=== PATIENT | male | born 1925 | race Caucasian/White ===

== ENCOUNTER 2017-04-07 12:06 | Inpatient (IN) | payer BC, MEDICARE ==
[~2017-04-07] VITALS: Ht 165.1 cm; Wt 74.0 kg
[~2017-04-07 12:06] MED LIST: ASPI-94 PO; ATOR80TA PO; CALC500T35 PO; EMPA1TAB PO; GLIP5 PO; HYDR-3533 PO; ISOS60 PO; MAGN500T4 PO; METO50 PO; NEUR100C PO; NITR0.4S SL; OMEP20TA39 PO; REST0.05 EACH EYE; TICA90 PO; VITA400D PO
[2017-04-07] MEDS ORDERED: SODIUM CHLORIDE 0.9% FLUSH 10 ML FLUSH IVF PRN (14:30)
[2017-04-07] MEDS ORDERED: TETANUS/DIPHTHERIA TOXOID ADULT 0.5 ML VIAL IM ONE (14:30)
[2017-04-07 14:34] VITALS: BP 170/74; PULSE 61; RESP 16; TEMP 97.9; O2SAT 92
--- NOTE | 2017-04-07 14:34 | PD ---
HPI Chief Complaint: fall Time Seen by Provider: 14:15 Travel History International Travel<30 days: No Contact w/Intl Traveler<30days: No Traveled to known affect area: No History of Present Illness HPI 89-year-old male presents via EMS for evaluation after a fall. According to the patient's daughter the patient yesterday inadvertently took her normal nighttime medications. These include 2 tablets of 50 mg amitriptyline, 2 tablets Tylenol PM, 2 tablets of gabapentin 600 mg, one tablet atorvastatin 10 mg, 2 tablets Tegretol 200 mg. These were sitting on the counter. The daughter realized shortly afterwards and checked on him throughout the night, he was sleeping quite soundly. This morning when she went to check on him she noted that he had fallen and there was wounds on his face, right elbow, right knee. He is currently complaining of some pain to his right rib cage and his abdomen. He does seem confused according to his daughterhe reports that he fell 2 days ago and was seen at this hospital for evaluation of this. This is not true according to the daughter. He is on aspirin and ticagrelor according to chart review. No other complaints. PFSH Past Medical History Cancer: Yes (MELONOMA REMOVED FROM FACE 1989) Cardiac Catheterization: Yes Cardiovascular Problems: Yes Chest Pain: Yes Diabetes: Yes Diminished Hearing: Yes (A LITTLE [place] BAND) Endocrine: Yes Gastrointestinal Disorders: Yes (Acid Reflux) Genitourinary: No Hypertension: Yes Immune Disorder: No Musculoskeletal: Yes Neurologic: No Psychiatric: No Reproductive: No Respiratory: No Myocardial Infarction: Yes Past Surgical History Cardiac Surgery: Yes Coronary Stent: Yes (X3) Other Surgery: Yes (ESOPHAGUS) Social History Alcohol Use: No Tobacco Use: No Substance Use: No Allergies-Medications (Allergen,Severity, Reaction): Coded Allergies: Demerol (Verified Allergy, Severe, 02/09/16) Morphine (Unverified Allergy, Severe, Anaphylaxis, 02/09/16) Reported Meds & Prescriptions Reported Meds & Active Scripts Active Reported Calcium (Oyster Shell) Unknown Strength Tab Unknown Dose PO DAILY C 500 (Ascorbic Acid) Unknown Strength Tab Unknown Dose PO DAILY Vitamin D3 (Cholecalciferol) 10,000 Unit Cap 10,000 Units PO Q7D Garlic Oil (Garlic) 500 Mg Cap 1,000 Mg PO DAILY B Complex (B-Complex W/ Folic Acid) 1 Tab 1 Tab PO DAILY Nitroglycerin SL (Nitroglycerin) 0.4 Mg Subl 0.4 Mg SL DIRECTED PRN ONE TABLET UNDER THE TONGUE NEEDED FOR CHEST PAIN, MAY REPEAT EVERY FIVE MINUTES FOR A TOTAL OF 3 DOSES OR CALL 911 IF NO RELIEF Selenium 200 Mcg Capsule 200 Mcg PO DAILY Namenda (Memantine) 5 Mg Tab 5 Mg PO BID Restasis Opth 0.05% (Cyclosporine Opth 0.05%) 0.05% Emul 1 Drop EACH EYE DAILY Isosorbide Mononitrate ER (Isosorbide Mononitrate) 60 Mg Tab 60 Mg PO DAILY Omeprazole 40 Mg Cap 40 Mg PO DAILY Atorvastatin (Atorvastatin Calcium) 80 Mg Tab 80 Mg PO DAILY Tradjenta (Linagliptin) 5 Mg Tab 5 Mg PO DAILY Glimepiride 2 Mg Tab 2 Mg PO DAILY Aspir-81 (Aspirin) 81 Mg Tabdr 81 Mg PO DAILY Brilinta (Ticagrelor) 90 Mg Tab 90 Mg PO BID Metoprolol Tartrate 25 Mg Tab 25 Mg PO BID Gabapentin 100 Mg Cap 200 Mg PO HS Gabapentin 100 Mg Cap 200 Mg PO DAILY AT NOON PRN Review of Systems Except as stated in HPI: all other systems reviewed are Neg Physical Exam Narrative GENERAL: Well-developed well-nourished male in no acute distress. Alert and oriented to person, city but not time. SKIN: Warm and dry. Periorbital ecchymosis noted, abrasion and contusion to the bridge of the nose, abrasions noted to the right elbow and right knee. HEAD: Skin as noted above. Normocephalic. EYES: Pupils equal and round extraocular muscles are intact. No scleral icterus. No injection or drainage. ENT: No nasal bleeding or discharge. Mucous membranes pink and moist. NECK: Trachea midline. No JVD. CARDIOVASCULAR: Regular rate and rhythm. No murmur appreciated. RESPIRATORY: No accessory muscle use. Clear to auscultation. Breath sounds equal bilaterally. GASTROINTESTINAL: Abdomen soft, mild left-sided abdominal tenderness without guarding. MUSCULOSKELETAL: No obvious deformities. No tenderness to palpation along the neck or back. There is some tenderness to palpation to the right rib cage. NEUROLOGICAL: Awake and alert. No obvious cranial nerve deficits. Motor grossly within normal limits. Normal speech. Data Data Last Documented VS Vital Signs Date Time Temp Pulse Resp B/P Pulse Ox O2 Delivery O2 Flow Rate FiO2 6/20/17 19:50 70 20 176/79 99 Nasal Cannula 3 04/07/17 14:34 97.9 Orders Electrocardiogram (04/07/17 14:18) Complete Blood Count With Diff (04/07/17 14:18) Comprehensive Metabolic Panel (04/07/17 14:18) Prothrombin Time / Inr (Pt) (04/07/17 14:18) Act Partial Throm Time (Ptt) (04/07/17 14:18) Ct Brain W/O Iv Contrast(Rout) (04/07/17 14:18) Iv Access Insert/Monitor (04/07/17 14:18) Ecg Monitoring (04/07/17 14:18) Oximetry (04/07/17 14:18) Sodium Chloride 0.9% Flush (Ns Flush) (04/07/17 14:30) Salicylates (Aspirin) (04/07/17 14:18) Tylenol (Acetaminophen) (04/07/17 14:18) Ct Facial Bones W/O Iv Cont (04/07/17 ) Ribs, Uni (W/Exp Cxr-Min 3vw) (04/07/17 ) Ct Abd/Pel W Iv Contrast(Rout) (04/07/17 14:18) Tetanus/Diphtheria Tox Adult (Tetanus/Di (04/07/17 14:30) Iodixanol 320 Inj (Rad Ct) (Visipaque 32 (04/07/17 18:05) Admit Order (Ed Use Only) (04/07/17 19:49) Consult Neurology (04/07/17 ) Labs Laboratory Tests Test 04/07/17 15:30 White Blood Count 7.1 TH/MM3 Red Blood Count 3.59 MIL/MM3 Hemoglobin 11.7 GM/DL Hematocrit 35.3 % Mean Corpuscular Volume 98.4 FL Mean Corpuscular Hemoglobin 32.5 PG Mean Corpuscular Hemoglobin 33.1 % Concent Red Cell Distribution Width 13.8 % Platelet Count 106 TH/MM3 Mean Platelet Volume 11.0 FL Neutrophils (%) (Auto) 50.5 % Lymphocytes (%) (Auto) 40.2 % Monocytes (%) (Auto) 7.1 % Eosinophils (%) (Auto) 2.1 % Basophils (%) (Auto) 0.1 % Neutrophils # (Auto) 3.6 TH/MM3 Lymphocytes # (Auto) 2.8 TH/MM3 Monocytes # (Auto) 0.5 TH/MM3 Eosinophils # (Auto) 0.1 TH/MM3 Basophils # (Auto) 0.0 TH/MM3 CBC Comment DIFF FINAL Differential Comment Prothrombin Time 10.6 SEC Prothromb Time International 1.0 RATIO Ratio Activated Partial 23.4 SEC Thromboplast Time Sodium Level 146 MEQ/L Potassium Level 4.2 MEQ/L Chloride Level 110 MEQ/L Carbon Dioxide Level 28.7 MEQ/L Anion Gap 7 MEQ/L Blood Urea Nitrogen 25 MG/DL Creatinine 1.82 MG/DL Estimat Glomerular Filtration 35 ML/MIN Rate Random Glucose 127 MG/DL Calcium Level 8.3 MG/DL Total Bilirubin 0.4 MG/DL Aspartate Amino Transf 33 U/L (AST/SGOT) Alanine Aminotransferase 35 U/L (ALT/SGPT) Alkaline Phosphatase 123 U/L Total Protein 6.7 GM/DL Albumin 3.4 GM/DL Salicylates Level LESS THAN 1.7 MG/DL Acetaminophen Level LESS THAN 2.0 MCG/ML MDM Medical Decision Making Medical Screen Exam Complete: Yes Emergency Medical Condition: Yes Medical Record Reviewed: Yes Interpretation(s) EKG sinus rhythm Rib x-ray no acute abnormalities CBC hemoglobin 11.7, platelet count 106 Differential Diagnosis Intracranial hemorrhage, concussion, facial fracture, contusion, rib fracture, pneumothorax, intra-abdominal injury Narrative Course 89-year-old male presents after a fall this morning after inadvertently taking his daughters normal nighttime medications. He does seem confused compared to his baseline according to his daughter. Examination reveals facial ecchymosis and abrasion. He is having some abdominal pain and right-sided rib cage pain. Plans for basic lab work, EKG, ECG monitoring, CT brain, facial bones, abdomen and pelvis, rib x-ray. CT of the abdomen, brain, facial bones reveals no acute abnormalities. Rib x-ray reveals no acute abnormalities. Upon reexamination the patient still appears confused compared to his baseline according to the daughter. For example he asked the daughter "is the nurse fishing?" On my examination he seemed confused in regards to his current injuries. He reports that he fell 2 days ago and was seen at an outside emergency room which was not sure according to the daughter. His imaging studies revealed no acute findings and his symptoms are likely secondary to concussion. He is on aspirin as well as brilinta. I discussed with the daughter options for this patient including discharge with close follow-up versus admission for observation and she would feel more comfortable with admitting him for observation given his current symptoms. Discussed with Dr. Hancock who is agreeable with admission. He requests consultation placed specifically to neurologist Dr. Vang or someone in Dr. Vang's group. Diagnosis Primary Impression: Closed head injury Qualified Code: S09.90XA - Closed head injury, initial encounter Additional Impression: Concussion Qualified Code: S06.0X9A - Concussion, with LOC of unspecified duration, initial encounter Admitting Information Admitting Physician Requests: Observation Demond Alvarenga Apr 07, 2017 14:34
[2017-04-07 15:40] VITALS: BP 179/79; PULSE 63; RESP 16; O2SAT 92; O2SAT 93
--- NOTE | 2017-04-07 15:43 | RADRPT ---
EXAM DATE/TIME: 04/07/2017 15:05 [facility] COMPARISON: No previous studies available for comparison. INDICATIONS : Right anterior rib pain post fall. MEDICAL HISTORY : None. SURGICAL HISTORY : None. ENCOUNTER: Initial ACUITY: 1 day PAIN SCORE: 7/10 LOCATION: Right anterior ribs FINDINGS: Multiple views of the right ribs were performed. There is no evidence of displaced fracture. No claude tructive lesions or areas of periosteal thickening are seen. Expiratory view of the chest is negativ e for pneumothorax. The mediastinal structures are midline. CONCLUSION: No rib fractures. Phil Ames MD on April 07, 2017 at 15:35 Board Certified Radiologist. This report was verified electronically.
[2017-04-07 16:02] LABS: AUTOMATED NEUTROPHIL # 3.6 TH/MM3 (1.8-7.7); BASOPHIL % 0.1 % (0.0-2.0); EOSINOPHIL # 0.1 TH/MM3 (0-0.4); EOSINOPHIL % 2.1 % (0.0-4.0); HEMATOCRIT 35.3 % (39.0-51.0); HEMO FLAGS DIFF FINAL; LYMPH % 40.2 % (9.0-44.0); LYMPHOCYTE # 2.8 TH/MM3 (1.0-4.8); MEAN CELL VOLUME 98.4 FL (80.0-100.0); MEAN CORPUSCULAR HEMOGLOBIN 32.5 PG (27.0-34.0); MEAN CORPUSCULAR HGB CONC 33.1 % (32.0-36.0); MONO % 7.1 % (0.0-8.0); NEUT % 50.5 % (16.0-70.0); PLATELET COUNT 106 TH/MM3 (150-450); RED BLOOD COUNT 3.59 MIL/MM3 (4.50-5.90); RED CELL DISTRIBUTION WIDTH 13.8 % (11.6-17.2); WHITE BLOOD COUNT 7.1 TH/MM3 (4.0-11.0)
[2017-04-07 16:13] LABS: APTT (PATIENT) 23.4 SEC (24.3-30.1); PROTHROMBIN TIME - PATIENT 10.6 SEC (9.8-11.6)
[2017-04-07 16:21] LABS: ANION GAP 7 MEQ/L (5-15); AST (GOT) 33 U/L (15-37); BICARBONATE 28.7 MEQ/L (21.0-32.0); BLOOD UREA NITROGEN 25 MG/DL (7-18); CHLORIDE 110 MEQ/L (98-107); GLOMERULAR FILTRATION RATE 35 ML/MIN (>89); POTASSIUM 4.2 MEQ/L (3.5-5.1); SODIUM (NA) 146 MEQ/L (136-145)
[2017-04-07 16:25] LABS: ACETAMINOPHEN LESS THAN 2.0 MCG/ML (10.0-30.0); ALKALINE PHOSPHATASE 123 U/L (45-117); ALT (GPT) 35 U/L (12-78); TOTAL BILIRUBIN ADULT 0.4 MG/DL (0.2-1.0)
--- NOTE | 2017-04-07 16:41 | EKG ---
Date Performed: 04/07/2017 Time Performed: 15:47:25 PTAGE: 89 years EKG: Sinus rhythm NORMAL ECG PREVIOUS TRACING : 04/10/2015 15.11 No significant change from previous tracing noted. DOCTOR: Kunal Danielle Interpretating Date/Time 04/07/2017 16:40:14
--- NOTE | 2017-04-07 18:01 | RADRPT ---
EXAM DATE/TIME: 04/07/2017 17:32 [facility] COMPARISON: CT BRAIN W/O CONTRAST, September 23, 2013, 22:04. INDICATIONS : Fell yesterday hit head. RADIATION DOSE: 45.52 CTDIvol (mGy) MEDICAL HISTORY : Cardiovascular disease. Hypertension. Diabetes,melanoma SURGICAL HISTORY : None. ENCOUNTER: Initial ACUITY: 1 day PAIN SCALE: 0/10 LOCATION: cranial TECHNIQUE: Multiple contiguous axial images were obtained of the head. Using automated exposure control and adj ustment of the mA and/or kV according to patient size, radiation dose was kept as low as reasonably a chievable to obtain optimal diagnostic quality images. FINDINGS: CEREBRUM: The ventricles are normal for age. No evidence of midline shift, mass lesion, hemorrhage or acute in farction. No extra-axial fluid collections are seen. POSTERIOR FOSSA: The cerebellum and brainstem are intact. The 4th ventricle is midline. The cerebellopontine angle i s unremarkable. EXTRACRANIAL: The visualized portion of the orbits is intact. SKULL: The calvaria is intact. No evidence of skull fracture. CONCLUSION: 1. No acute findings. Cortical volume loss. Isac Putnam MD on April 07, 2017 at 17:56 Board Certified Radiologist. This report was verified electronically.
[2017-04-07] MEDS ORDERED: IODIXANOL 320 MG/ML 10 ML VIAL (for Rad CT) IV ONE (18:05)
--- NOTE | 2017-04-07 18:15 | RADRPT ---
EXAM DATE/TIME: 04/07/2017 17:32 [facility] COMPARISON: No previous studies available for comparison. INDICATIONS : Fell yesterday hit head. RADIATION DOSE: 52.78 CTDIvol (mGy) MEDICAL HISTORY : Cardiovascular disease. Hypertension. Diabetes,melanoma SURGICAL HISTORY : None. ENCOUNTER: Initial ACUITY: 1 day PAIN SCORE: 0/10 LOCATION: facial TECHNIQUE: Volumetric scanning of the facial bones was performed. Using automated exposure control and adjustme nt of the mA and/or kV according to patient size, radiation dose was kept as low as reasonably achiev able to obtain optimal diagnostic quality images. FINDINGS: ORBITS: The orbital and infraorbital osseous structures are intact. The retroconal structures have a normal configuration. No radiopaque foreign bodies are seen. NASAL BONE: The nasal bone and maxillary spine are intact ZYGOMATIC ARCHES: Symmetric without evidence of fracture. SINUSES: The maxillary, ethmoid and frontal sinuses are intact. No air-fluid levels seen. NASAL CAVITY: The nasal septum is intact and midline. The lacrimal ducts are intact. SOFT TISSUES: No radiopaque foreign bodies seen. No soft-tissue swelling is seen. INTRACRANIAL: No intracranial air seen. CRIBIFORM PLATE: Grossly intact. CONCLUSION: 1. No acute findings. Isac Putnam MD on April 07, 2017 at 18:08 Board Certified Radiologist. This report was verified electronically.
--- NOTE | 2017-04-07 18:22 | RADRPT ---
EXAM DATE/TIME: 04/07/2017 17:41 [facility] COMPARISON: No previous studies available for comparison. INDICATIONS : Fall yesterday. IV CONTRAST: 50 cc Visipaque (iodixanol) IV ORAL CONTRAST: No oral contrast ingested. RADIATION DOSE: 10.11 CTDIvol (mGy) MEDICAL HISTORY : Cardiovascular disease. Hypertension. Diabetes,melanoma SURGICAL HISTORY : None. ENCOUNTER: Initial ACUITY: 1 day PAIN SCALE: 0/10 LOCATION: Abdomen TECHNIQUE: Volumetric scanning of the abdomen and pelvis was performed. Using automated exposure control and ad justment of the mA and/or kV according to patient size, radiation dose was kept as low as reasonably achievable to obtain optimal diagnostic quality images. FINDINGS: They are basilar fibrotic changes and chronic airspace disease similar to March 2015 examination. Heart is enlarged. No acute findings in the liver, spleen, adrenals, kidneys or pancreas. The kidneys are atrophic. No calcified gallstones or biliary ductal dilatation. No free fluid. No bowel obstruction. No adenopathy. There is previous screw fixation right femur. Calcified mesenteric lymph node noted in right lower qu adrant. CONCLUSION: 1. Negative for acute traumatic injury within the abdomen and pelvis. No acute bony abnormality. 2. Chronic fibrotic changes at the lung bases similar to 2015. 3. Previous screw fixation proximal right femur. Isac Putnam MD on April 07, 2017 at 18:13 Board Certified Radiologist. This report was verified electronically.
[2017-04-07] MEDS ORDERED: BRIL90TA PO (19:30)
[2017-04-07] MEDS ORDERED: ASPI81TA81 PO (19:30)
[2017-04-07] MEDS ORDERED: ATOR40TA16 PO (19:30)
[2017-04-07] MEDS ORDERED: TRAD5TAB PO (19:30)
[2017-04-07] MEDS ORDERED: GABA100C4 PO ×2 (19:30)
[2017-04-07] MEDS ORDERED: METO25TA3 PO (19:30)
[2017-04-07] MEDS ORDERED: GLIM2TAB PO (19:30)
[2017-04-07 19:50] VITALS: BP 176/79; PULSE 70; RESP 20; O2SAT 99
[2017-04-07] MEDS ORDERED: CHOL1CAP24 PO (19:55)
[2017-04-07] MEDS ORDERED: OMEP40CA2 PO (19:55)
[2017-04-07] MEDS ORDERED: REST0.05 EACH EYE (19:55)
[2017-04-07] MEDS ORDERED: ATOR1TAB18 PO (19:55)
[2017-04-07] MEDS ORDERED: CALC500T35 PO (19:55)
[2017-04-07] MEDS ORDERED: ISOS60TA PO (19:55)
[2017-04-07] MEDS ORDERED: NITR1SUB3 SL (19:55)
[2017-04-07] MEDS ORDERED: GARL500C PO (19:55)
[2017-04-07] MEDS ORDERED: NAME5TAB2 PO (19:55)
[2017-04-07] MEDS ORDERED: C 50TAB PO (19:55)
[2017-04-07] MEDS ORDERED: SELE200C3 PO (19:55)
[2017-04-07] MEDS ORDERED: B COTAB3 PO (19:55)
[2017-04-07 20:37] VITALS: BP 149/67; PULSE 66; RESP 20; O2SAT 98
[2017-04-07] MEDS ORDERED: SENNOSIDES 8.6 MG TAB PO PRN (20:45)
[2017-04-07] MEDS ORDERED: ACETAMINOPHEN 325 MG TAB PO PRN (20:45)
[2017-04-07] MEDS ORDERED: BISACODYL 10 MG SUPP RECTAL PRN (20:45)
[2017-04-07] MEDS ORDERED: MAGNESIUM HYDROXIDE SUSP 30 ML CUP PO PRN (20:45)
[2017-04-07] MEDS ORDERED: SODIUM CHLORIDE 0.9% FLUSH 10 ML FLUSH IV FLUSH PRN (20:45)
[2017-04-07] MEDS ORDERED: NALOXONE HCL 0.4 MG/ML AMP IV PRN (20:45)
[2017-04-07] MEDS ORDERED: LACTULOSE SYRUP 20 GM/30 ML CUP PO PRN (20:45)
[2017-04-07] MEDS: SODIUM CHLORIDE 0.9% FLUSH 10 ML FLUSH IV FLUSH SCH (21:00)
[2017-04-07] MEDS: GABAPENTIN 100 MG CAP PO SCH (21:00)
[2017-04-07] MEDS: DOCUSATE SODIUM 50 MG/SENNA 8.6 MG TAB PO SCH (21:00)
[2017-04-07] MEDS: MEMANTINE HCL 5 MG TAB PO SCH (21:00)
[2017-04-07] MEDS: TICAGRELOR 90 MG TAB PO SCH (21:00)
[2017-04-07] MEDS: METOPROLOL TARTRATE 25 MG TAB PO SCH (21:00)
[2017-04-07] MEDS ORDERED: CHOLECALCIFEROL (VIT D3) 5000 UNIT CAP PO SCH (22:00)
[2017-04-07 22:25] VITALS: BP 178/81; PULSE 60; RESP 18; TEMP 98; O2SAT 99
[2017-04-08] VITALS (20 sets, daily range): BP systolic 141–172; BP diastolic 71–81; PULSE 56–82; RESP 16–18; TEMP 97.9–98.7; O2SAT 93–95
[2017-04-08 05:37] LABS: AUTOMATED NEUTROPHIL # 3.5 TH/MM3 (1.8-7.7); BASOPHIL % 0.2 % (0.0-2.0); EOSINOPHIL # 0.2 TH/MM3 (0-0.4); EOSINOPHIL % 2.8 % (0.0-4.0); HEMATOCRIT 34.8 % (39.0-51.0); HEMO FLAGS DIFF FINAL; LYMPH % 41.8 % (9.0-44.0); LYMPHOCYTE # 3.1 TH/MM3 (1.0-4.8); MEAN CELL VOLUME 97.5 FL (80.0-100.0); MEAN CORPUSCULAR HEMOGLOBIN 33.1 PG (27.0-34.0); NEUT % 47.2 % (16.0-70.0); PLATELET COUNT 106 TH/MM3 (150-450); RED BLOOD COUNT 3.57 MIL/MM3 (4.50-5.90); RED CELL DISTRIBUTION WIDTH 14.2 % (11.6-17.2); WHITE BLOOD COUNT 7.5 TH/MM3 (4.0-11.0)
[2017-04-08 05:51] LABS: ANION GAP 7 MEQ/L (5-15); AST (GOT) 31 U/L (15-37); BICARBONATE 29.7 MEQ/L (21.0-32.0); BLOOD UREA NITROGEN 21 MG/DL (7-18); CHLORIDE 108 MEQ/L (98-107); GLOMERULAR FILTRATION RATE 37 ML/MIN (>89); POTASSIUM 3.7 MEQ/L (3.5-5.1); SODIUM (NA) 145 MEQ/L (136-145)
[2017-04-08 05:54] LABS: ALKALINE PHOSPHATASE 123 U/L (45-117); ALT (GPT) 30 U/L (12-78); TOTAL BILIRUBIN ADULT 0.5 MG/DL (0.2-1.0)
[2017-04-08] MEDS: ISOSORBIDE MONONITRATE 60 MG TAB PO SCH (06:23)
--- NOTE | 2017-04-08 08:20 | HHI.HP ---
History of Present Illness Service Family medicine Primary Care Physician Hosea Hancock, DO Admission Diagnosis closed head injury, concussion Diagnoses: History of Present Illness Patient is a 89-year-old male who presented to ED for evaluation after a fall. According to records the patient's daughter reported that he inadvertently took her normal nighttime medications. These include 2 tablets of 50 mg amitriptyline, 2 tablets Tylenol PM, 2 tablets of gabapentin 600 mg, one tablet atorvastatin 10 mg, 2 tablets Tegretol 200 mg. These were sitting on the counter. The daughter realized shortly afterwards and checked on him throughout the night, he was sleeping quite soundly. When she went to check on him she noted that he had fallen and there was wounds on his face, right elbow, right knee. He is not able to give details of event he is alert to self, DARBY well, and cooperative. Head CT, abdomen/pelvis CT, maxillofacial CT and rib Xray with no acute findings. Neurology is consulted for evaluation. Patient has a past medical history of diabetes, GERD, HTN, and CAD with stent placement Review of Systems Constitutional: DENIES: Fatigue, Weight loss, Chills, Dizziness Respiratory: DENIES: Cough, Wheezing, Sputum production, Shortness of breath Cardiovascular: DENIES: Chest pain, Palpitations Gastrointestinal: DENIES: Abdominal pain, Constipation, Diarrhea Hematologic/lymphatic: COMPLAINS OF: Bruising Neurologic: DENIES: Headache, Seizures Psychiatric: COMPLAINS OF: Confusion, DENIES: Anxiety Past Family Social History Allergies: Coded Allergies: Demerol (Verified Allergy, Severe, 02/09/16) Morphine (Unverified Allergy, Severe, Anaphylaxis, 02/09/16) Past Medical History HTN CAD with stent placement GERD Diabetes [place] Past Surgical History Cardiac stent placement Active Ordered Medications Current Medications Medications (Trade) Dose Ordered Sig/Leonardo Route Start Time Stop Time Status Last Admin (NS Flush) 2 ml UNSCH PRN IVF 04/07/17 14:30 (Ecotrin Ec) 81 mg DAILY PO 04/08/17 09:00 (Lipitor) 80 mg DAILY PO 04/08/17 09:00 (Vitamin D3) 10,000 units Q7D PO 04/07/17 22:00 (Neurontin) 200 mg HS PO 04/07/17 21:00 04/07/17 21:00 (Amaryl) 2 mg DAILYAC PO 04/08/17 08:00 (Imdur) 60 mg DAILY@07 PO 04/08/17 07:00 04/08/17 06:23 (Namenda) 5 mg BID PO 04/07/17 21:00 04/07/17 21:00 (Lopressor) 25 mg BID PO 04/07/17 21:00 04/07/17 21:00 (Brilinta) 90 mg BID PO 04/07/17 21:00 (Nephrocaps) 1 cap DAILY PO 04/08/17 09:00 Patient Own Medication 1 ea DAILY EACH EYE 04/08/17 09:00 Future Hold Patient Own Medication 5 ea DAILY PO 04/08/17 09:00 Future Hold (Protonix) 40 mg DAILY PO 04/08/17 09:00 (NS Flush) 2 ml UNSCH PRN IV FLUSH 04/07/17 20:45 (NS Flush) 2 ml BID IV FLUSH 04/07/17 21:00 04/07/17 21:00 (Tylenol) 650 mg Q4H PRN PO 04/07/17 20:45 (Narcan Inj) 0.4 mg UNSCH PRN IV 04/07/17 20:45 (Emelia-Colace) 1 tab BID PO 04/07/17 21:00 (Milk Of Magnesia Liq) 30 ml Q12H PRN PO 04/07/17 20:45 (Senokot) 17.2 mg Q12H PRN PO 04/07/17 20:45 (Dulcolax Supp) 10 mg DAILY PRN RECTAL 04/07/17 20:45 (Lactulose Liq) 30 ml DAILY PRN PO 04/07/17 20:45 Family History Unable to obtain. Social History Denies smoking and ETOH use Lives with family Retired railroad switchman Physical Exam Vital Signs Vital Signs Date Time Temp Pulse Resp B/P Pulse Ox O2 Delivery O2 Flow Rate FiO2 04/08/17 06:00 62 04/08/17 05:00 59 04/08/17 04:00 61 04/08/17 04:00 98.0 60 18 151/79 93 04/08/17 03:00 59 04/08/17 02:00 62 04/08/17 01:00 59 04/08/17 00:00 59 04/08/17 00:00 97.9 58 18 172/81 95 04/07/17 22:25 98.0 60 18 178/81 99 04/07/17 20:37 66 20 149/67 98 Nasal Cannula 3 04/07/17 19:50 70 20 176/79 99 Nasal Cannula 3 04/07/17 15:40 63 16 179/79 93 Room Air 04/07/17 15:40 92 Room Air 04/07/17 14:34 97.9 61 16 170/74 92 Physical Exam GENERAL: Well-developed well-nourished male in no acute distress. Alert and oriented to person, city but not time. SKIN: Warm and dry. Periorbital ecchymosis noted, abrasion and contusion to the bridge of the nose, abrasions noted to the right elbow and right knee. HEAD: Skin as noted above. Normocephalic. EYES: Pupils equal and round extraocular muscles are intact. No scleral icterus. No injection or drainage. ENT: No nasal bleeding or discharge. Mucous membranes pink and moist. NECK: Trachea midline. No JVD. CARDIOVASCULAR: Regular rate and rhythm. No murmur appreciated. RESPIRATORY: No accessory muscle use. Clear to auscultation. Breath sounds equal bilaterally. GASTROINTESTINAL: Abdomen soft, mild left-sided abdominal tenderness without guarding. MUSCULOSKELETAL: No obvious deformities. No tenderness to palpation along the neck or back. There is some tenderness to palpation to the right rib cage. NEUROLOGICAL: Awake and alert. No obvious cranial nerve deficits. Motor grossly within normal limits. Normal speech. Laboratory Laboratory Tests Test 04/07/17 04/08/17 15:30 05:21 White Blood Count 7.1 7.5 Red Blood Count 3.59 3.57 Hemoglobin 11.7 11.8 Hematocrit 35.3 34.8 Mean Corpuscular Volume 98.4 97.5 Mean Corpuscular Hemoglobin 32.5 33.1 Mean Corpuscular Hemoglobin 33.1 34.0 Concent Red Cell Distribution Width 13.8 14.2 Platelet Count 106 106 Mean Platelet Volume 11.0 10.8 Neutrophils (%) (Auto) 50.5 47.2 Lymphocytes (%) (Auto) 40.2 41.8 Monocytes (%) (Auto) 7.1 8.0 Eosinophils (%) (Auto) 2.1 2.8 Basophils (%) (Auto) 0.1 0.2 Neutrophils # (Auto) 3.6 3.5 Lymphocytes # (Auto) 2.8 3.1 Monocytes # (Auto) 0.5 0.6 Eosinophils # (Auto) 0.1 0.2 Basophils # (Auto) 0.0 0.0 CBC Comment DIFF FINAL DIFF FINAL Differential Comment Prothrombin Time 10.6 Prothromb Time International 1.0 Ratio Activated Partial 23.4 Thromboplast Time Sodium Level 146 145 Potassium Level 4.2 3.7 Chloride Level 110 108 Carbon Dioxide Level 28.7 29.7 Anion Gap 7 7 Blood Urea Nitrogen 25 21 Creatinine 1.82 1.75 Estimat Glomerular Filtration 35 37 Rate Random Glucose 127 134 Calcium Level 8.3 8.7 Total Bilirubin 0.4 0.5 Aspartate Amino Transf 33 31 (AST/SGOT) Alanine Aminotransferase 35 30 (ALT/SGPT) Alkaline Phosphatase 123 123 Total Protein 6.7 6.4 Albumin 3.4 3.1 Salicylates Level LESS THAN 1.7 Acetaminophen Level LESS THAN 2.0 Result Diagram: 04/08/17 0521 04/08/17 0521 Imaging Last [address] 04/07/17 1418 Signed Impressions: Service Date/Time: Friday, April 07, 2017 17:32 - CONCLUSION: 1. No acute findings. Cortical volume loss. Isac Putnam MD Abdomen/Pelvis CT 04/07/17 1418 Signed Impressions: Service Date/Time: Friday, April 07, 2017 17:41 - CONCLUSION: 1. Negative for acute traumatic injury within the abdomen and pelvis. No acute bony abnormality. 2. Chronic fibrotic changes at the lung bases similar to 2015. 3. Previous screw fixation proximal right femur. Isac Putnam MD Ribs X-Ray 04/07/17 0000 Signed Impressions: Service Date/Time: Friday, April 07, 2017 15:05 - CONCLUSION: No rib fractures. Phil Ames MD Maxillofacial CT 04/07/17 0000 Signed Impressions: Service Date/Time: Friday, April 07, 2017 17:32 - CONCLUSION: 1. No acute findings. Isac Putnam MD Assessment and Plan Problem List: (1) Concussion Status: Acute Plan: Patient S/P fall. Head CT with no acute findings. Neurology consulted. PT and OT ordered (2) DM (diabetes mellitus screen) Status: Acute Plan: BS AC and HS. Continue Amaryl will monitor (3) CAD (coronary artery disease) Status: Acute Plan: Continue Brilinta. Denies and chest discomfort (4) HBP (high blood pressure) Status: Acute Plan: Continue current regimen will monitor closely (5) Hyperlipidemia Status: Acute Plan: Continue statin. (6) GERD (gastroesophageal reflux disease) Status: Acute Plan: On PPI asymptomatic (7) Chronic renal disease Status: Acute Plan: CKD stage 3. Stable with creat 1.75 and BUN of 21. Recheck in AM Assessment and Plan Assessment and plan discussed with Dr. Hancock Discussed Condition With Nursing Discharge Planning To be assessed Physician Attestation I and the ADMINISTRATIVE SERVICES MANAGER have both examined this patient and reviewed this note and I agree with these findings and plan of care. Hosea Hancock DO Problem Qualifiers (1) Concussion: Qualified Code: S06.0X9A - Concussion, with LOC of unspecified duration, initial encounter Miya Buitrago Apr 08, 2017 08:20
[2017-04-08] MEDS: SODIUM CHLOR 0.9% 1000 ML INJ 1,000 ML IV SCH ×2 (08:21→21:41)
[2017-04-08] MEDS: ASPIRIN EC 81 MG TABEC PO SCH (08:41)
[2017-04-08] MEDS: GLIMEPIRIDE 2 MG TAB PO SCH (08:42)
[2017-04-08] MEDS: TICAGRELOR 90 MG TAB PO SCH ×2 (08:42→21:00)
[2017-04-08] MEDS: MEMANTINE HCL 5 MG TAB PO SCH ×2 (08:42→22:08)
[2017-04-08] MEDS: ATORVASTATIN 80 MG TAB PO SCH (08:42)
[2017-04-08] MEDS: PANTOPRAZOLE SOD 40 MG DELAYED RELEASE TAB PO SCH (08:42)
[2017-04-08] MEDS: METOPROLOL TARTRATE 25 MG TAB PO SCH ×2 (08:42→22:08)
[2017-04-08] MEDS: DOCUSATE SODIUM 50 MG/SENNA 8.6 MG TAB PO SCH ×2 (08:42→22:08)
[2017-04-08] MEDS: SODIUM CHLORIDE 0.9% FLUSH 10 ML FLUSH IV FLUSH SCH ×2 (08:43→22:09)
--- NOTE | 2017-04-08 08:54 | MB ---
cc: BEN DELA CRUZ M.D. DATE OF CONSULTATION 04/08/2017 REASON FOR CONSULTATION The patient is an 89-year-old right-handed man who appears to have some dementia, non-insulin dependent diabetes. He tells me he had an MA sometime ago with a stent. He tells me he may have passed out in the past, but he does not remember the specifics of it. Some minor skin cancers. He has had several falls recently and had taken his nighttime medicines during the day and subsequently was found to have abrasions on his face and brought into the hospital. He may have been to an ER recently after a fall, although not here in this hospital. Nevertheless, he had taken two Tylenol PM, 100 mg of Elavil, two pills of Gabapentin, atorvastatin and two pills of Tegretol. He was sleeping well and these medications evidently were the patient's daughter medicines and not his own. In the morning, she went in to check him, he had fallen, had wounds on his face, had pain in his right rib cage and he seemed confused and he had also fallen two days prior. ALLERGIES DEMEROL AND MORPHINE MED8S He is on: 1. Calcium 2. Vitamin D 3. Namenda 5 b.i.d. 4. Restasis drops 5. Isosorbide 6. Omeprazole 7. Atorvastatin 8. Tradjenta 9. Glyburide 10. 81 of aspirin 11. Brilinta 12. Metoprolol 13. Gabapentin 100 in the morning, 200 at noon, 200 at night. REVIEW OF SYSTEMS He denies any hypertension, hypercholesterolemia, A. Fib, Coumadin, renal, hepatic or pulmonary disease, thyroid disease lupus, ulcer, seizures, or stroke. SOCIAL HISTORY Not a smoker or a drinker, lives with his he tells me. FAMILY HISTORY Negative for cancer, seizure or stroke. PHYSICAL EXAM VITAL SIGNS: Afebrile, 151/79, 60. EKG showed sinus rhythm. NECK: There were no carotid bruits. HEART: Regular rhythm. I did not detect a murmur. He does have abrasions about his nose and raccoon eyes bilaterally. NEUROLOGIC: Pupils are equal, visual calderón are full. Extraocular intact without nystagmus. He denies any dizziness at this time. He tells me he is lightheaded on standing. Face is symmetrical normal station. Tongue was midline. There is no drift. He had normal strength in the upper and lower extremities bilaterally. DTRs are absent throughout. Toes are downgoing bilaterally. Pinprick was intact in all four extremities and face. He is not ataxic on [id number]. Speech is fluent. He is not aphasic, however, he is a little hypophonic. He does not know the year. He says he lives in [place]. He is not sure what state he is in. He says [place] was a state. Obviously had some dementia. Gait is actually fairly steady with minimal assist. LABORATORY DATA CBC was essentially normal. Basic metabolic profile creatinine 1.75 otherwise essentially normal. LFTs normal. Albumin 3.1. Coags normal. UA negative. CT scan of the brain was read as normal. CT of the abdomen and pelvis essentially unremarkable. Maxillofacial CT, no fracture. Rib x-ray. No rib fracture. Review of his CT scan of the brain films shows some diffuse atrophy, some central and cortical atrophy, no major hydrocephalus. IMPRESSION It appears he has some underlying dementia, probably some Alzheimer's dementia. He has had some recent falls. We will check a standing blood pressure, have PT ambulate him. We will check an MRI of the brain to make sure he has not had a recent stroke, although I did not see one obviously on his exam here. Of course, his daughter will have to make sure he takes his own medications at home. Might consider adding on some Aricept in the future. Overall, I thought he looked fairly well neurologically. We will check an EEG on him also and a carotid ultrasound. He might be able to be discharged fairly quickly if his workup is negative and if he is steady on his feet and cleared by PT. We will also check some additional dementia labs. MD MARTIN Curiel/FERN /8:22 AM /8:33 AM
[2017-04-08] MEDS ORDERED: SELENIUM 200 MCG PO SCH (09:00)
[2017-04-08] MEDS ORDERED: [UNRECOGNIZED DRUG - OTHER] PO SCH (09:00)
[2017-04-08] MEDS: VITAMIN B CMPLX/VITC/FOLIC AC CAP PO SCH (09:00)
[2017-04-08] MEDS ORDERED: CYCLOSPORINE OPTH 0.05% EACH EYE SCH (09:00)
[2017-04-08] MEDS ORDERED: [UNRECOGNIZED DRUG - OTHER] EACH EYE SCH (09:00)
[2017-04-08] MEDS ORDERED: GARLIC 1000 MG PO SCH (09:00)
[2017-04-08] MEDS ORDERED: LINAGLIPTIN 5 MG PO SCH (09:00)
--- NOTE | 2017-04-08 13:18 | RADRPT ---
EXAM DATE/TIME: 04/08/2017 11:48 [facility] COMPARISON: No previous studies available for comparison. INDICATIONS : Head injury. Concussion. MEDICAL HISTORY : Hypertension. Myocardial infarction. Acid reflux. Diabetes. Endocrine disorder. SURGICAL HISTORY : Cardiac catheterization. Coronary stent. Right hip rocio placement. Esophageal surgery. ENCOUNTER: Initial ACUITY: 1 day PAIN SCORE: 1/10 LOCATION: Bilateral neck. PEAK SYSTOLIC VELOCITIES (cm/sec): ICA/CCA RATIO: Right: 1.3 Left: 1.2 ICA: Right: 72.1 Left: 77.6 CCA: Right: 54.5 Left: 64.2 ECA: Right: 75.4 Left: 93.5 VERTEBRAL: Right: 43.3 antegrade Left: 51.8 antegrade Elevated flow velocities and ICA/CCA ratios have been found to correlate with increased degrees of vessel stenosis, calculated as percentage of diameter relative to a normal segment of distal ICA/CCA FINDINGS: RIGHT CAROTID: There is no evidence for a hemodynamically significant carotid stenosis. Minimal int imal hyperplasia is present with scattered calcific plaque. LEFT CAROTID: There is no evidence for a hemodynamically significant carotid stenosis. Minimal inti mal hyperplasia is present with scattered calcific plaque. VERTEBRAL ARTERIES: Flow is antegrade in both vertebral arteries. MISCELLANEOUS: There are no ancillary masses or adenopathy. CONCLUSION: Negative examination for a hemodynamically significant carotid stenosis. Andrzej Desai MD FACR Andrzej Desai MD FACR on April 08, 2017 at 13:15 Board Certified Radiologist. This report was verified electronically.
[2017-04-08 14:21] LABS: FREE T4 1.05 NG/DL (0.76-1.46); TOTAL PROTEIN SPE 6.5 GM/DL (6.0-7.6)
[2017-04-08] MEDS: GABAPENTIN 100 MG CAP PO SCH (22:08)
--- NOTE | 2017-04-08 23:00 | MG ---
cc: YOSSI DURON MD Lab No: [id number] Date: 04/08/17 Age: 89 Sex: M Race: DATE OF 1925 HISTORY An 89-year-old with history of confusion. 4-7 Hz posterior rhythm, 10-40 microvolts. Further slowing ___ movements suggestive of drowsy state. Mild vertex waves suggestive of stage I sleep. No significant driving, photic stimulation. Single lead EKG showing sinus rhythm with premature contractions. INTERPRETATION Normal sleep EEG. Clinical correlation. Yossi Duron MD MG/EO /10:27 PM /11:00 PM
[2017-04-09] VITALS (10 sets, daily range): BP systolic 92–170; BP diastolic 51–81; PULSE 56–70; RESP 18–20; TEMP 98.3–99.4; O2SAT 91–94
[2017-04-09] MEDS: ISOSORBIDE MONONITRATE 60 MG TAB PO SCH (06:21)
[2017-04-09 06:25] LABS: HEMATOCRIT 33.2 % (39.0-51.0); MEAN CELL VOLUME 98.5 FL (80.0-100.0); MEAN CORPUSCULAR HEMOGLOBIN 32.7 PG (27.0-34.0); MEAN CORPUSCULAR HGB CONC 33.2 % (32.0-36.0); PLATELET COUNT 97 TH/MM3 (150-450); RED BLOOD COUNT 3.37 MIL/MM3 (4.50-5.90); RED CELL DISTRIBUTION WIDTH 14.1 % (11.6-17.2)
[2017-04-09 06:33] LABS: REVIEW FLAG FINAL
[2017-04-09 06:46] LABS: BICARBONATE 25.4 MEQ/L (21.0-32.0); POTASSIUM 3.5 MEQ/L (3.5-5.1)
--- NOTE | 2017-04-09 07:45 | HHI.PR ---
Objective Vital Signs Date Time Temp Pulse Resp B/P Pulse Ox O2 Delivery O2 Flow Rate FiO2 04/09/17 04:00 61 04/09/17 04:00 98.3 62 18 170/81 94 04/09/17 00:00 61 04/09/17 00:00 99.4 66 18 152/74 93 04/08/17 20:00 98.7 65 16 141/71 93 04/08/17 20:00 60 04/08/17 17:00 56 04/08/17 16:00 56 04/08/17 15:00 74 04/08/17 14:00 60 04/08/17 13:00 66 04/08/17 12:00 62 04/08/17 11:00 66 04/08/17 10:00 82 04/08/17 09:00 70 04/08/17 08:45 98.2 63 18 149/78 93 04/08/17 08:00 60 I/O 04/08/17 04/08/17 04/08/17 04/09/17 04/09/17 04/09/17 07:00 15:00 23:00 07:00 15:00 23:00 Intake Total 240 ml 800 ml 721 ml Output Total 500 ml 200 ml Balance -260 ml 800 ml 521 ml Intake Oral 240 ml 600 ml 240 ml IV Total 200 ml 481 ml Output Urine Total 500 ml 200 ml # Voids 4 1 # Bowel Movements 1 1 0 Result Diagram: 04/09/17 0609 04/09/17 0609 Objective Remarks awake alert confused Assessment and Plan Assessment and Plan imp mri pend standing bp pend labs and eeg ok so far us neg ambulate with PT if mri neg and stand bp ok he could dc and fu with me o/p or with his o/p neurologist if he has one ad Steven Mendieta MD Apr 09, 2017 07:44
--- NOTE | 2017-04-09 08:02 | HHI.PR ---
Subjective Remarks Patient seen at bedside sitter present. Alert and cooperative. Oriented to self and place. Denies any SOB. Reports some discomfort from fall in rib region. Objective Vital Signs Date Time Temp Pulse Resp B/P Pulse Ox O2 Delivery O2 Flow Rate FiO2 04/09/17 04:00 61 04/09/17 04:00 98.3 62 18 170/81 94 04/09/17 00:00 61 04/09/17 00:00 99.4 66 18 152/74 93 04/08/17 20:00 98.7 65 16 141/71 93 04/08/17 20:00 60 04/08/17 17:00 56 04/08/17 16:00 56 04/08/17 15:00 74 04/08/17 14:00 60 04/08/17 13:00 66 04/08/17 12:00 62 04/08/17 11:00 66 04/08/17 10:00 82 04/08/17 09:00 70 04/08/17 08:45 98.2 63 18 149/78 93 04/08/17 08:00 60 I/O 04/08/17 04/08/17 04/08/17 04/09/17 04/09/17 04/09/17 07:00 15:00 23:00 07:00 15:00 23:00 Intake Total 240 ml 800 ml 721 ml Output Total 500 ml 200 ml Balance -260 ml 800 ml 521 ml Intake Oral 240 ml 600 ml 240 ml IV Total 200 ml 481 ml Output Urine Total 500 ml 200 ml # Voids 4 1 # Bowel Movements 1 1 0 Result Diagram: 04/09/17 0609 04/09/17 0609 Imaging Last 72 hours Impressions Carotid Artery Ultrasound 04/08/17 0000 Signed Impressions: Service Date/Time: Saturday, April 08, 2017 11:48 - CONCLUSION: Negative examination for a hemodynamically significant carotid stenosis. Andrzej Desai MD Head CT 04/07/17 1418 Signed Impressions: Service Date/Time: Friday, April 07, 2017 17:32 - CONCLUSION: 1. No acute findings. Cortical volume loss. Isac Putnam MD Abdomen/Pelvis CT 04/07/17 1418 Signed Impressions: Service Date/Time: Friday, April 07, 2017 17:41 - CONCLUSION: 1. Negative for acute traumatic injury within the abdomen and pelvis. No acute bony abnormality. 2. Chronic fibrotic changes at the lung bases similar to 2015. 3. Previous screw fixation proximal right femur. Isac Putnam MD Ribs X-Ray 04/07/17 0000 Signed Impressions: Service Date/Time: Friday, April 07, 2017 15:05 - CONCLUSION: No rib fractures. Phil Ames MD Maxillofacial CT 04/07/17 0000 Signed Impressions: Service Date/Time: Friday, April 07, 2017 17:32 - CONCLUSION: 1. No acute findings. Isac Putnam MD Other Results GENERAL: Well-developed well-nourished male in no acute distress. Alert and oriented to person, city but not time. SKIN: Warm and dry. Periorbital ecchymosis noted, abrasion and contusion to the bridge of the nose, abrasions noted to the right elbow and right knee. HEAD: Skin as noted above. Normocephalic. EYES: Pupils equal and round extraocular muscles are intact. No scleral icterus. No injection or drainage. ENT: No nasal bleeding or discharge. Mucous membranes pink and moist. NECK: Trachea midline. No JVD. CARDIOVASCULAR: Regular rate and rhythm. No murmur appreciated. RESPIRATORY: No accessory muscle use. Clear to auscultation. Breath sounds equal bilaterally. GASTROINTESTINAL: Abdomen soft, mild left-sided abdominal tenderness without guarding. MUSCULOSKELETAL: No obvious deformities. No tenderness to palpation along the neck or back. There is some tenderness to palpation to the right rib cage. NEUROLOGICAL: Awake and alert. No obvious cranial nerve deficits. Motor grossly within normal limits. Normal speech. Medications and IVs Current Medications Medications (Trade) Dose Ordered Sig/Leonardo Route Start Time Stop Time Status Last Admin (NS Flush) 2 ml UNSCH PRN IVF 04/07/17 14:30 (Ecotrin Ec) 81 mg DAILY PO 04/08/17 09:00 04/08/17 08:41 (Lipitor) 80 mg DAILY PO 04/08/17 09:00 04/08/17 08:42 (Vitamin D3) 10,000 units Q7D PO 04/07/17 22:00 (Neurontin) 200 mg HS PO 04/07/17 21:00 04/08/17 22:08 (Amaryl) 2 mg DAILYAC PO 04/08/17 08:00 04/08/17 08:42 (Imdur) 60 mg DAILY@07 PO 04/08/17 07:00 04/09/17 06:21 (Namenda) 5 mg BID PO 04/07/17 21:00 04/08/17 22:08 (Lopressor) 25 mg BID PO 04/07/17 21:00 04/08/17 22:08 (Brilinta) 90 mg BID PO 04/07/17 21:00 04/08/17 21:00 (Nephrocaps) 1 cap DAILY PO 04/08/17 09:00 04/08/17 09:00 Patient Own Medication 1 ea DAILY EACH EYE 04/08/17 09:00 Hold Patient Own Medication 5 ea DAILY PO 04/08/17 09:00 Hold (Protonix) 40 mg DAILY PO 04/08/17 09:00 04/08/17 08:42 (NS Flush) 2 ml UNSCH PRN IV FLUSH 04/07/17 20:45 (NS Flush) 2 ml BID IV FLUSH 04/07/17 21:00 04/08/17 22:09 (Tylenol) 650 mg Q4H PRN PO 04/07/17 20:45 (Narcan Inj) 0.4 mg UNSCH PRN IV 04/07/17 20:45 (Emelia-Colace) 1 tab BID PO 04/07/17 21:00 04/08/17 22:08 (Milk Of Magnesia Liq) 30 ml Q12H PRN PO 04/07/17 20:45 (Senokot) 17.2 mg Q12H PRN PO 04/07/17 20:45 (Dulcolax Supp) 10 mg DAILY PRN RECTAL 04/07/17 20:45 Lactulose 30 ml 30 ml DAILY PRN PO 04/07/17 20:45 (NS 1000 ml Inj) 1,000 ml @ 75 mls/hr [id number] IV 04/08/17 08:21 04/08/17 21:41 Assessment and Plan Problem List: (1) Concussion Status: Acute Plan: Patient S/P fall. Head CT with no acute findings. Neurology consulted. Carotid US WNL. MRI ordered per neurology. Underlying early Alzheimer/dementia noted. Patient is with sitter currently. Will add Risperdal to medication regimen. PT and OT initiated. (2) DM (diabetes mellitus screen) Status: Acute Plan: BS AC and HS. BS well controlled. Continue Amaryl will monitor (3) CAD (coronary artery disease) Status: Acute Plan: Continue Brilinta. Denies and chest discomfort (4) HBP (high blood pressure) Status: Acute Plan: Blood pressure elevated at times. Amlodipine added. (5) Hyperlipidemia Status: Acute Plan: Continue statin. (6) GERD (gastroesophageal reflux disease) Status: Acute Plan: On PPI asymptomatic (7) Chronic renal disease Status: Acute Plan: CKD stage 3. Stable with creat 1.87 and BUN of 27. Recheck in AM Assessment and Plan Assessment and plan discussed with Dr. Hancock Discussed Condition With nursing Discharge Planning [facility] rehab Physician Attestation I and the COMPUTER SYSTEMS TECHNOLOGY INSTRUCTOR have both examined this patient and reviewed this note and I agree with these findings and plan of care. Hosea Hancock DO Problem Qualifiers (1) Concussion: Qualified Code: S06.0X9A - Concussion, with LOC of unspecified duration, initial encounter Miya Buitrago Apr 09, 2017 08:02
[2017-04-09] MEDS: risperiDONE 0.25 MG TAB PO SCH ×2 (09:30→20:54)
[2017-04-09] MEDS: VITAMIN B CMPLX/VITC/FOLIC AC CAP PO SCH (09:38)
[2017-04-09] MEDS: PANTOPRAZOLE SOD 40 MG DELAYED RELEASE TAB PO SCH (09:38)
[2017-04-09] MEDS: ASPIRIN EC 81 MG TABEC PO SCH (09:38)
[2017-04-09] MEDS: DOCUSATE SODIUM 50 MG/SENNA 8.6 MG TAB PO SCH ×2 (09:38→20:55)
[2017-04-09] MEDS: TICAGRELOR 90 MG TAB PO SCH ×2 (09:38→20:54)
[2017-04-09] MEDS: METOPROLOL TARTRATE 25 MG TAB PO SCH ×2 (09:38→20:55)
[2017-04-09] MEDS: ATORVASTATIN 80 MG TAB PO SCH (09:38)
[2017-04-09] MEDS: SODIUM CHLORIDE 0.9% FLUSH 10 ML FLUSH IV FLUSH SCH ×2 (09:39→20:55)
[2017-04-09] MEDS: GLIMEPIRIDE 2 MG TAB PO SCH (09:39)
[2017-04-09] MEDS: MEMANTINE HCL 5 MG TAB PO SCH ×2 (09:39→20:54)
[2017-04-09 10:22] LABS: RAPID PLASMA REAGIN SCREEN NON-REACTIVE (NON-REACTVE)
[2017-04-09] MEDS: SODIUM CHLOR 0.9% 1000 ML INJ 1,000 ML IV SCH (11:01)
--- NOTE | 2017-04-09 11:21 | RADRPT ---
EXAM DATE/TIME: 04/09/2017 10:39 [facility] COMPARISON: No previous studies available for comparison. INDICATIONS : Concussion post fall. MEDICAL HISTORY : Diabetes mellitus type 2. carcinoma, skin SURGICAL HISTORY : rt hip surgery, cardiac stents ENCOUNTER: Subsequent ACUITY: 2 day PAIN SCORE: 0/10 LOCATION: cranial TECHNIQUE: Multiplanar, multisequence MRI of the brain was performed without contrast. FINDINGS: CEREBRUM: The ventricles are normal for age. No evidence of midline shift, mass lesion, hemorrhage or acute in farction. No extraaxial fluid collections are seen. The pituitary gland and suprasellar cistern are normal in configuration. WHITE MATTER: No significant signal abnormalities are seen in the white matter. POSTERIOR FOSSA: The cerebellum and brainstem are intact. The 4th ventricle is midline. The cerebellopontine angle is unremarkable. The cerebellar tonsils are normal in position. DIFFUSION IMAGING: No focal areas of restricted diffusion are seen. No evidence of acute infarction. EXTRACRANIAL: The visualized portions of the orbits and paranasal sinuses are unremarkable. CONCLUSION: 1. No acute findings. Exam within normal limits for age. There is some cortical volume loss. No mass, hemorrhage or midline shift. No recent infarct. Isac Putnam MD on April 09, 2017 at 11:15 Board Certified Radiologist. This report was verified electronically.
[2017-04-09] MEDS: GABAPENTIN 100 MG CAP PO SCH (20:55)
[2017-04-09 22:37] LABS: ALBUMIN SPE 3.87 GM/DL (3.50-5.00); ALPHA 1 GLOBULIN 0.18 GM/DL (0.11-0.29); ALPHA 2 GLOBULIN 0.81 GM/DL (0.22-1.00); BETA GLOBULINS (SPE) 0.73 GM/DL (0.53-1.03)
[2017-04-10] VITALS (17 sets, daily range): BP systolic 92–154; BP diastolic 51–80; PULSE 60–84; RESP 18–20; TEMP 98.1–99; O2SAT 92–94
[2017-04-10] MEDS: SODIUM CHLOR 0.9% 1000 ML INJ 1,000 ML IV SCH ×2 (00:21→13:41)
[2017-04-10 04:45] LABS: HEMATOCRIT 32.9 % (39.0-51.0); MEAN CELL VOLUME 96.4 FL (80.0-100.0); MEAN CORPUSCULAR HEMOGLOBIN 33.4 PG (27.0-34.0); MEAN CORPUSCULAR HGB CONC 34.6 % (32.0-36.0); PLATELET COUNT 104 TH/MM3 (150-450); RED BLOOD COUNT 3.41 MIL/MM3 (4.50-5.90); RED CELL DISTRIBUTION WIDTH 14.2 % (11.6-17.2); REVIEW FLAG FINAL; WHITE BLOOD COUNT 8.2 TH/MM3 (4.0-11.0)
[2017-04-10 05:17] LABS: BICARBONATE 25.9 MEQ/L (21.0-32.0); POTASSIUM 3.8 MEQ/L (3.5-5.1)
[2017-04-10] MEDS: ISOSORBIDE MONONITRATE 60 MG TAB PO SCH (06:01)
--- NOTE | 2017-04-10 07:24 | HHI.PR ---
Subjective Remarks o2 sats down off o2 confused last pm Objective Vital Signs Date Time Temp Pulse Resp B/P Pulse Ox O2 Delivery O2 Flow Rate FiO2 04/10/17 06:00 68 04/10/17 05:00 64 04/10/17 04:00 66 04/10/17 03:00 64 04/10/17 02:00 66 04/10/17 01:00 60 04/10/17 00:00 66 04/09/17 23:00 98.6 61 20 141/70 91 04/09/17 23:00 70 04/09/17 22:00 68 04/09/17 21:00 66 04/09/17 20:00 66 04/09/17 19:00 98.5 67 20 152/79 92 127/69 04/09/17 19:00 66 04/09/17 15:53 62 04/09/17 15:53 98.9 66 18 118/58 94 118/60 92/51 04/09/17 11:58 98.6 60 18 126/73 93 118/60 92/51 04/09/17 07:55 98.5 56 18 140/74 92 121/69 95/51 04/09/17 07:55 63 I/O 04/09/17 04/09/17 04/09/17 04/10/17 04/10/17 04/10/17 07:00 15:00 23:00 07:00 15:00 23:00 Intake Total 721 ml 600 ml Output Total 200 ml 650 ml Balance 521 ml -50 ml Intake Oral 240 ml 600 ml IV Total 481 ml Output Urine Total 200 ml 650 ml # Voids 1 # Bowel Movements 0 1 Result Diagram: 04/10/17 0425 04/10/17 0425 Objective Remarks sleepiing now Assessment and Plan Assessment and Plan imp mri neg new some atrophy cw ad standing bp low 95/ labs and eeg ok us neg ambulate with PT i order CXR AND ABG for hypoxia ALSO I WOULD REC MAYBE BACKING OFF ON BP MEDS STANDING BP LOW if all this done and ok then he could dc neurowise to rehab and fu with me o/ p or with his o/p neurologist if he has one ad Steven Mendieta MD Apr 10, 2017 07:24
[2017-04-10] MEDS: GLIMEPIRIDE 2 MG TAB PO SCH (08:39)
[2017-04-10] MEDS: VITAMIN B CMPLX/VITC/FOLIC AC CAP PO SCH (08:39)
[2017-04-10] MEDS: ATORVASTATIN 80 MG TAB PO SCH (08:39)
[2017-04-10] MEDS: risperiDONE 0.25 MG TAB PO SCH (08:40)
[2017-04-10] MEDS: SODIUM CHLORIDE 0.9% FLUSH 10 ML FLUSH IV FLUSH SCH (08:40)
[2017-04-10] MEDS: PANTOPRAZOLE SOD 40 MG DELAYED RELEASE TAB PO SCH (08:40)
[2017-04-10] MEDS: TICAGRELOR 90 MG TAB PO SCH (08:40)
[2017-04-10] MEDS: METOPROLOL TARTRATE 25 MG TAB PO SCH (08:40)
[2017-04-10] MEDS: MEMANTINE HCL 5 MG TAB PO SCH (08:40)
[2017-04-10] MEDS: ASPIRIN EC 81 MG TABEC PO SCH (08:40)
[2017-04-10] MEDS: DOCUSATE SODIUM 50 MG/SENNA 8.6 MG TAB PO SCH (08:40)
--- NOTE | 2017-04-10 09:39 | RADRPT ---
EXAM DATE/TIME: 04/10/2017 09:01 [facility] COMPARISON: CHEST PA & LAT, February 09, 2016, 14:57. INDICATIONS : Hypoxia. MEDICAL HISTORY : Hypertension. Diabetes mellitus type II. Myocardial infarction. GERD. SURGICAL HISTORY : Coronary artery stent. ENCOUNTER: Subsequent ACUITY: 3 days PAIN SCORE: 0/10 LOCATION: Bilateral chest FINDINGS: There are minimal bibasilar parenchymal changes with cardiomegaly. Lung volumes are small. There is no pneumothorax. CONCLUSION: Under aeration with increasing bibasilar parenchymal changes and mild interstitial edema. Congestive failure cannot be entirely excluded. Andrzej Desai MD FACR on April 10, 2017 at 9:26 Board Certified Radiologist. This report was verified electronically.
[2017-04-10] MEDS ORDERED: RISP.25 PO (10:47)
[2017-04-10] MEDS ORDERED: OXYGENDME NAS.CANULA (10:51)
--- NOTE | 2017-04-10 11:01 | HHI.DS ---
Discharge Summary Admission Date Apr 07, 2017 at 19:51 Admitting Diagnosis closed head injury, concussion (1) Concussion (2) Borderline low O2 saturation (3) DM (diabetes mellitus screen) (4) HBP (high blood pressure) (5) Hyperlipidemia (6) GERD (gastroesophageal reflux disease) Brief History Patient is a 89-year-old male who presented to ED for evaluation after a fall. According to records the patient's daughter reported that he inadvertently took her normal nighttime medications. These include 2 tablets of 50 mg amitriptyline, 2 tablets Tylenol PM, 2 tablets of gabapentin 600 mg, one tablet atorvastatin 10 mg, 2 tablets Tegretol 200 mg. These were sitting on the counter. The daughter realized shortly afterwards and checked on him throughout the night, he was sleeping quite soundly. When she went to check on him she noted that he had fallen and there was wounds on his face, right elbow, right knee. He is not able to give details of event he is alert to self, DARBY well, and cooperative. Head CT, abdomen/pelvis CT, maxillofacial CT and rib Xray with no acute findings. Neurology is consulted for evaluation. Patient has a past medical history of diabetes, GERD, HTN, and CAD with stent placement CBC/BMP: 04/10/17 0425 04/10/17 0425 Significant Findings Laboratory Tests Test 04/07/17 04/08/17 04/08/17 04/09/17 15:30 05:21 12:57 06:09 Red Blood Count 3.59 MIL/MM3 3.57 MIL/MM3 3.37 MIL/MM3 (4.50-5.90) (4.50-5.90) (4.50-5.90) Hemoglobin 11.7 GM/DL 11.8 GM/DL 11.0 GM/DL (13.0-17.0) (13.0-17.0) (13.0-17.0) Hematocrit 35.3 % 34.8 % 33.2 % (39.0-51.0) (39.0-51.0) (39.0-51.0) Platelet Count 106 TH/MM3 106 TH/MM3 97 TH/MM3 (150-450) (150-450) (150-450) Activated Partial 23.4 SEC Thromboplast Time (24.3-30.1) Sodium Level 146 MEQ/L (136-145) Chloride Level 110 MEQ/L 108 MEQ/L (98-107) (98-107) Blood Urea Nitrogen 25 MG/DL (7-18) 21 MG/DL (7-18) 27 MG/DL (7-18) Creatinine 1.82 MG/DL 1.75 MG/DL 1.87 MG/DL (0.60-1.30) (0.60-1.30) (0.60-1.30) Estimat Glomerular Filtration 35 ML/MIN (>89) 37 ML/MIN (>89) 34 ML/MIN (>89) Rate Random Glucose 127 MG/DL 134 MG/DL 152 MG/DL (74-106) (74-106) (74-106) Calcium Level 8.3 MG/DL 8.2 MG/DL (8.5-10.1) (8.5-10.1) Alkaline Phosphatase 123 U/L 123 U/L (45-117) (45-117) Salicylates Level LESS THAN 1.7 MG/DL (2.8-20.0) Acetaminophen Level LESS THAN 2.0 MCG/ML (10.0-30.0) Albumin 3.1 GM/DL (3.4-5.0) Erythrocyte Sedimentation Rate 31 mm/hr (0-20) Test 04/10/17 04:25 Red Blood Count 3.41 MIL/MM3 (4.50-5.90) Hemoglobin 11.4 GM/DL (13.0-17.0) Hematocrit 32.9 % (39.0-51.0) Platelet Count 104 TH/MM3 (150-450) Chloride Level 108 MEQ/L (98-107) Blood Urea Nitrogen 21 MG/DL (7-18) Creatinine 1.77 MG/DL (0.60-1.30) Estimat Glomerular Filtration 36 ML/MIN (>89) Rate Random Glucose 165 MG/DL (74-106) Imaging Last 48 hours Impressions Brain MRI 04/09/17 0000 Signed Impressions: Service Date/Time: March 10:39 - CONCLUSION: 1. No acute findings. Exam within normal limits for age. There is some cortical volume loss. No mass, hemorrhage or midline shift. No recent infarct. Isac Putnam MD PE at Discharge GENERAL: Well-developed well-nourished male in no acute distress. Alert and oriented to person, city but not time. SKIN: Warm and dry. Periorbital ecchymosis noted, abrasion and contusion to the bridge of the nose, abrasions noted to the right elbow and right knee. HEAD: Skin as noted above. Normocephalic. EYES: Pupils equal and round extraocular muscles are intact. No scleral icterus. No injection or drainage. ENT: No nasal bleeding or discharge. Mucous membranes pink and moist. NECK: Trachea midline. No JVD. CARDIOVASCULAR: Regular rate and rhythm. No murmur appreciated. RESPIRATORY: No accessory muscle use. Clear to auscultation. Breath sounds equal bilaterally. GASTROINTESTINAL: Abdomen soft, mild left-sided abdominal tenderness without guarding. MUSCULOSKELETAL: No obvious deformities. No tenderness to palpation along the neck or back. There is some tenderness to palpation to the right rib cage. NEUROLOGICAL: Awake and alert. No obvious cranial nerve deficits. Motor grossly within normal limits. Normal speech. Hospital Course Patient is a 89-year-old male who presented to ED for evaluation after a fall. According to records the patient's daughter reported that he inadvertently took her normal nighttime medications. These include 2 tablets of 50 mg amitriptyline, 2 tablets Tylenol PM, 2 tablets of gabapentin 600 mg, one tablet atorvastatin 10 mg, 2 tablets Tegretol 200 mg. These were sitting on the counter. The daughter realized shortly afterwards and checked on him throughout the night, he was sleeping quite soundly. When she went to check on him she noted that he had fallen and there was wounds on his face, right elbow, right knee. He is not able to give details of event he is alert to self, DARBY well, and cooperative. Head CT, abdomen/pelvis CT, maxillofacial CT and rib Xray with no acute findings. Neurology is consulted for evaluation. Patient has a past medical history of diabetes, GERD, HTN, and CAD with stent placement. During his hospital course patient was follow by neurology. MRI negative with some atrophy, labs and EEG WNL. Patient with mild interstitial edema on chest Xray today and may need Oxygen PRN for sats less than 90. Lasix given X 1. Patient also continues to have confusion. Risperdal added this admission. Discussed with Dr. Hancock and he cleared patient for discharge to SNF discussed chest Xray results and Sats. Pt Condition on Discharge: Good Discharge Disposition: Discharge to SNF Discharge Instructions DIET: Follow Instructions for: As Tolerated, No Restrictions Activities you can perform: Regular-No Restrictions Follow up Referrals: PCP Follow-up New Medications: Oxygen (O2) (Oxygen (O2)) Device 2 LITER ALINA.CANULA CONTINUOUS Oxygen Concentrator Portable Gaseous 2 L/min via Nasal Canula Continuous For 99 months PRN PER RESPIRATORY PROTOCOL #2 CYLINDER Risperidone (Risperdal) 0.25 Mg Tab 0.25 MG PO Q12HR Agitation #60 TAB Continued Medications: Ascorbic Acid (C 500) Unknown Strength Tab Unknown Dose PO DAILY Aspirin DR (Aspir-81) 81 Mg Tabdr 81 MG PO DAILY Atorvastatin (Atorvastatin) 80 Mg Tab 80 MG PO DAILY Cholesterol Management #30 Ref 0 TAB B-Complex W/ Folic Acid (B Complex) 1 Tab 1 TAB PO DAILY TAB Cyclosporine Opth 0.05% (Restasis Opth 0.05%) 0.05% Emul 1 DROP EACH EYE DAILY Dry Eye #1 Ref 0 BOX Gabapentin (Gabapentin) 100 Mg Cap 200 MG PO HS #30 Ref 0 CAP Garlic (Garlic Oil) 500 Mg Cap 1000 MG PO DAILY Glimepiride (Glimepiride) 2 Mg Tab 2 MG PO DAILY Blood Sugar Management #60 Ref 0 TAB Isosorbide Mononitrate ER (Isosorbide Mononitrate ER) 60 Mg Tab 60 MG PO DAILY Prevent Chest Pain #30 Ref 0 TAB Linagliptin (Tradjenta) 5 Mg Tab 5 MG PO DAILY Blood Sugar Management #30 Ref 0 TAB Memantine (Namenda) 5 Mg Tab 5 MG PO BID Alzheimer Disease #60 Ref 0 TAB Metoprolol Tartrate (Metoprolol Tartrate) 25 Mg Tab 25 MG PO BID #60 Ref 0 TAB Omeprazole (Omeprazole) 40 Mg Cap 40 MG PO DAILY #30 Ref 0 CAP Selenium (Selenium) 200 Mcg Capsule 200 MCG PO DAILY Ticagrelor (Brilinta) 90 Mg Tab 90 MG PO BID Blood Clot Prevention #60 Ref 0 TAB Discontinued Medications: Cholecalciferol (Vitamin D3) 10,000 Unit Cap 57968 UNITS PO Q7D Nutritional Supplement #1 Ref 0 BOTTLE Gabapentin (Gabapentin) 100 Mg Cap 200 MG PO DAILY AT NOON PRN NEUROPATHY #60 Ref 0 CAP Nitroglycerin SL (Nitroglycerin SL) 0.4 Mg Subl 0.4 MG SL DIRECTED ONE TABLET UNDER THE TONGUE NEEDED FOR CHEST PAIN, MAY REPEAT EVERY FIVE MINUTES FOR A TOTAL OF 3 DOSES OR CALL 911 IF NO RELIEF PRN CHEST PAIN #100 Ref 0 TAB.SL Oyster Shell (Calcium) Unknown Strength Tab Unknown Dose PO DAILY Miya Buitrago Apr 10, 2017 11:01 Miya Buitrago Apr 10, 2017 11:01
[2017-04-10] MEDS ORDERED: FUROSEMIDE 20 MG TAB PO ONE (11:15)
[2017-04-10 11:38] LABS: BLOOD GAS BASE EXCESS 0.9 mmol/L (-2-2); BLOOD GAS CARBOXYHEMOGLOBIN 2.1 % (0-4); BLOOD GAS HCO3 24 mmol/L (22-26); BLOOD GAS METHEMOGLOBIN 1.2 % (0-2); BLOOD GAS O2 HGB SATURATION 87 % (90-100); BLOOD GAS OXYGEN CONTENT 12.8 Vol % (12.0-20.0); BLOOD GAS PCO2 35 mmHg (38-42); BLOOD GAS PO2 57 mmHg (61-120); BLOOD GAS TOTAL HGB 10.4 G/DL (12.0-16.0); TEMP CORR TO 98.6
[2017-04-10 11:40] LABS: CRITICAL VALUE YES
[2017-04-10 11:41] LABS: DRAW SITE LT RADIAL; LITER FLOW 2 L/M; NUMBER OF ARTERIAL PUNCTURES 1; OXYGEN DEVICE NASAL CANNULA; STAT NO; ULNAR PULSE PRESENT
[2017-04-10 15:46] LABS: ANA SCREEN NEG (NEG)
== END 2017-04-10 19:05 | DRG 90 ==
LOC: NEPE 12:06 → OBSVTOIN 19:51 → NEDA 19:51 → HCIS 21:46
PROVIDERS: ADMIT Family Medicine; ATTEND Family Medicine
DX: S06.0X0A Concussion without loss of consciousness, initial encounter (principal); E11.22 Type 2 diabetes mellitus with diabetic chronic kidney disease; G30.9 Alzheimer's disease, unspecified; F02.80 Dementia in other diseases classified elsewhere, unspecified severity, without behavioral disturbance, psychotic disturbance, mood disturbance, and anxiety; Z79.84 Long term (current) use of oral hypoglycemic drugs; N18.3 Chronic kidney disease, stage 3 (moderate); I12.9 Hypertensive chronic kidney disease with stage 1 through stage 4 chronic kidney disease, or unspecified chronic kidney disease; S00.81XA Abrasion of other part of head, initial encounter; S00.83XA Contusion of other part of head, initial encounter; W19.XXXA Unspecified fall, initial encounter; T50.991A Poisoning by other drugs, medicaments and biological substances, accidental (unintentional), initial encounter; Y92.009 Unspecified place in unspecified non-institutional (private) residence as the place of occurrence of the external cause; Z79.82 Long term (current) use of aspirin; Z79.02 Long term (current) use of antithrombotics/antiplatelets; I25.2 Old myocardial infarction; K21.9 Gastro-esophageal reflux disease without esophagitis; H91.90 Unspecified hearing loss, unspecified ear; E78.5 Hyperlipidemia, unspecified; R09.02 Hypoxemia
CPT/HCPCS: 36600; 70450; 70486; 70551; 71020; 71101; 74177; 76937; 80048; 80053; 80307; 82607; 82805; 82948; 83921; 84165; 84425; 84439; 84443; 85025; 85027; 85610; 85652; 85730; 86038; 86592; 90714; 93005; 93880; 95819; 96372; J7030; Q9967